=== PATIENT | female | born 1990 | race Caucasian/White ===

== ENCOUNTER 2019-03-16 10:26 | Inpatient (IN) | payer OTHER ==
[2019-03-16] VITALS (41 sets, daily range): BP systolic 106–138; BP diastolic 52–108
[~2019-03-16] VITALS: Ht 162.6 cm; Wt 72.1 kg
[~2019-03-16 10:26] MED LIST: AGM875T; ALBU0.83RX; BIRTH CONTROL; CLIN300C3 PO; METH4TAB PO; TRM50T; TRM50T PO; Z-PACK; [UNRECOGNIZED DRUG - OTHER]
--- NOTE | 2019-03-16 10:26 | NUR ---
AMELIA HART presented to unit via from home, accompanied by , for early labor.Pt was seen in office of Dr Vazquez this am. AMELIA HART weighed, gowned, voided, and to bed. EFHM and TOCO applied, VS taken. AMELIA HART oriented to bed controls, call light, TV, heat, and A/C controls.
[2019-03-16] MEDS ORDERED: MINERAL OIL CONCENTRATE 99.9% 15 ML UDC TOP PRN (11:15)
[2019-03-16 11:17] LABS: BILIRUBIN,URINE NEGATIVE (NEGATIVE); CLARITY,URINE CLEAR; COLOR,URINE YELLOW; GLUCOSE, URINE (UA) NEGATIVE (NEGATIVE); KETONES,URINE 2+ (NEGATIVE); LEUKOCYTE ESTERASE ,URINE 2+ (NEGATIVE); NITRITE,URINE NEGATIVE (NEGATIVE); PH,URINE 7 (5-9); PROTEIN,URINE NEGATIVE (NEGATIVE); UROBILINOGEN,URINE NORMAL (NORMAL)
[2019-03-16] MEDS: D5 LR IV SOLUTION 1,000 ML IV SCH ×2 (11:20→18:11)
[2019-03-16 11:29] LABS: BACTERIA,URINE MODERATE /HPF
[2019-03-16 11:44] LABS: BASOPHILS % (AUTO) 0 % (0-10); EOSINOPHILS # (AUTO) 0.2 10^3/uL (0.0-0.3); EOSINOPHILS % (AUTO) 2 % (0-10); HEMATOCRIT 38 % (35-52); LYMPHOCYTES # (AUTO) 1.3 X 10^3 (1.0-4.0); LYMPHOCYTES % (AUTO) 11 % (12-44); MEAN CORPUSCULAR HEMOGLOBIN 33 PG (25-34); MEAN CORPUSCULAR HGB CONC 34 G/DL (32-36); MEAN CORPUSCULAR VOLUME 97 FL (80-99); MEAN PLATELET VOLUME 11.7 FL (7.4-10.4); MONOCYTES # (AUTO) 0.9 X 10^3 (0.0-1.0); MONOCYTES % (AUTO) 8 % (0-12); NEUTROPHILS # (AUTO) 8.9 X 10^3 (1.8-7.8); NEUTROPHILS % (AUTO) 80 % (42-75); PLATELET COUNT 152 10^3/uL (130-400); RED CELL DISTRIBUTION WIDTH 13.8 % (10.0-14.5); WHITE BLOOD COUNT 11.2 10^3/uL (4.3-11.0)
--- NOTE | 2019-03-16 12:08 | NUR ---
Pt states she is not allergic to Guaifenesin. Allen, pharmacist with change in record.
[2019-03-16] MEDS ORDERED: PREN-142 PO (12:24)
[2019-03-16] MEDS ORDERED: LORA10CA PO (12:24)
[2019-03-16] MEDS ORDERED: CATHETER FLUSH 10 ML SYR IV SCH (14:00)
[2019-03-16] MEDS ORDERED: OXYTOCIN/NORMAL SALINE 500 ML IV ONE (14:16)
--- NOTE | 2019-03-16 14:24 | History & Physical ---
History and Physical Date Seen by Provider: Mar 16, 2019 Time Seen by Provider: 13:00 This is a late entry the patient was seen at approximately 1300 today This patient is a 28-year-old G1 white female with an EDC of [phone] putting her now at 38+ weeks gestation. She was seen in clinic on this date complaint of contractions and pressure. She was dilated to almost 3 cm and dillon every 3-4 minutes. She was sent to labor and delivery for evaluation management. She has continued to contract she denies rupture membranes or bleeding at the time of admission she has had no problems with this and a GBS culture was negative. Allergies are none Medications are vitamins Medical social and surgical histories are per the antepartum record HEENT exam is normal Neck is supple no lymphadenopathy no thyromegaly Abdomen is gravid soft nontender nondistended Extremities show no clubbing cyanosis. There is no Homans sign. Pelvic exam is as noted above. Laboratory Tests 03/16/19 11:20 monitor shows normal heart rate pattern with somewhat irregular contractions every 2-7 minutes. Assessment and plan term at 38+ weeks' gestation in latent labor. Patient has been admitted and amniotomy will be performed she was started on Pitocin if necessary to effect progress in labor. Anticipation is for vaginal delivery. Allergies and Home Medications Allergies Coded Allergies: Guaifenesin (Verified Allergy, Unknown, 04/04/08) Home Medications Vit No.124/Iron/FA Unknown Strength Tablet, Unknown Dose PO DAILY, (Reported) Patient Home Medication List Home Medication List Reviewed: Yes Clinical Quality Measures DVT/VTE Risk/Contraindication: Risk Factor Score Per Nursin RFS Level Per Nursing on Admit: 1=Low/No VTE PPX DEJUAN ASHRAF MD Mar 16, 2019 14:24
[2019-03-16] MEDS ORDERED: BUPIVACAINE 0.25% 30 ML (SENSORCAINE) VIAL ONE (16:53)
[2019-03-16] MEDS ORDERED: fentaNYL INJECTION 100 MCG/2 ML AMP ONE (16:53)
[2019-03-16] MEDS ORDERED: LIDOCAINE PF 2% 5 ML (XYLOCAINE) VIAL ONE (16:53)
[2019-03-16] MEDS ORDERED: SUFENTA 0.6MCG/ML BUPIVA 0.125 100 ML ONE (16:54)
--- NOTE | 2019-03-16 17:00 | NUR ---
JENNIE Valenzuela here for epidural placement. Procedure explained, consent reviewed and signed by anesthesia. Questions answered to patient's satisfaction. Time out taken to verify correct patient/procedure. 1708- Patient up to side of bed, assisted into sitting position. Betadine prep done x3 and sterile drape applied. 1716- Local done, see anesthesia record. 1720- Test dose given, see anesthesia record for drug and dosage. Epidural catheter secured in place. Epidural placement complete. 1724- Assisted back into bed, monitors adjusted. 1725- Epidural dosed, see anesthesia record. Epidural of Sufenta/Bupvicaine @12cc/hr stated per pump. Patient tolerated procedure well.
[2019-03-16] MEDS ORDERED: LACTATED RINGERS 1,000 ML IV SCH (17:28)
[2019-03-16] MEDS ORDERED: ONDANSETRON 4 MG/2 ML (SDV) Z0FRAN IV PRN (17:30)
[2019-03-16] MEDS ORDERED: EPIDURAL (SUFENTA 0.6MCG/ML BUPIVA 0.125%) 100 ML BAG EPI PRN (17:30)
[2019-03-16] MEDS ORDERED: NALOXONE 0.4 MG/ML 1 ML (NARCAN) VIAL IV PRN (17:30)
[2019-03-16] MEDS ORDERED: diphenhydrAMINE 50 MG/ML INJ (BENADRYL) IV PRN (17:30)
--- NOTE | 2019-03-16 17:52 | NUR ---
was called with update on pt's status, SVE and pitocin infusion rate. no new orders received.
[2019-03-16] MEDS ORDERED: OXYTOCIN/NORMAL SALINE 500 ML IV SCH (19:57)
[2019-03-16] MEDS ORDERED: LIDOCAINE/EPI 2% 1:200,00 (XYLOCAINE) 10 ML VIAL ONE (21:04)
[2019-03-17] VITALS (17 sets, daily range): BP systolic 90–145; BP diastolic 54–80
[2019-03-17] MEDS ORDERED: OXYTOCIN/NORMAL SALINE 500 ML IV SCH ×2 (01:55→03:38)
[2019-03-17] MEDS ORDERED: KETOROLAC 30 MG/ML VIAL ONE (02:00)
[2019-03-17] MEDS ORDERED: BENZOCAINE/MENTHOL (DERMOPLAST) 56 ML CAN TP ONE (02:45)
[2019-03-17] MEDS ORDERED: WITCH HAZEL(TUCKS) 40 EA JAR ONE (02:45)
--- NOTE | 2019-03-17 03:00 | NUR ---
Pt up to side of bed. Epidural cath removed, tip intact. Pt feeling dizzy and needing to lay down before attempting to get up to void. emesis bag given if needed, cool cloth offered. Pericare done in bed with pt laying on side. Ice pack given.
[2019-03-17] MEDS ORDERED: MEASLES,MUMPS,RUBELLA 1 EA INJ SC ONE (03:45)
[2019-03-17] MEDS ORDERED: oxyCODONE/APAP 5/325MG (PERCOCET 5) TABLET PO PRN (03:45)
[2019-03-17] MEDS ORDERED: TETANUS,DIPTH,PERTUSS P/F (BOOSTRIX) 0.5 ML VIAL IM ONE (03:45)
[2019-03-17] MEDS ORDERED: KETOROLAC 30 MG/ML VIAL IVP PRN (03:45)
[2019-03-17] MEDS ORDERED: BENZOCAINE/MENTHOL (DERMOPLAST) 56 ML CAN TP PRN (03:45)
[2019-03-17] MEDS ORDERED: ONDANSETRON 4 MG/2 ML (SDV) Z0FRAN IVP PRN (03:45)
--- NOTE | 2019-03-17 04:00 | NUR ---
pt up to void in labor room, no void at this time, pericare demonstrated and discussed. Clean gown, vpad and mesh panties in place. pt up to wheelchair. pt feeling dizzy at this time, cool cloth given, ice chips per request, pt feeling nauseated as well. Pt denies the need to lay down. Pt remains in wheelchair and taken into the nsy per request with s.o.
--- NOTE | 2019-03-17 05:00 | NUR ---
Pt remains in nsy at this time bonding with infant.
--- NOTE | 2019-03-17 05:45 | NUR ---
Pt back to room after in nsy, pt up to void, void noted. Assisted with pericare and clean vpad in place, pt ambulated to PP bed, oriented to room, call light, and info papers explained. pt tolerated ambulating well, but did feel dizzy prior to laying down. Enc pt to call before getting out of bed. fresh ice water given, denies the need for pain medication.
--- NOTE | 2019-03-17 07:54 | Progress Note ---
Standard Progress Note Progress Notes/Assess & Plan Date Seen by a Provider: Mar 17, 2019 Time Seen by a Provider: 07:53 Progress/Assessment & Plan This patient is without complaint. She is ambulating, voiding, tolerating oral intake. She has adequate pain control from her delivery approximately 45 hours ago. Vital Signs 03/17/19 03/17/19 03/17/19 00:30 01:45 03:45 Temp 37.6 Pulse 107 Resp 16 B/P (MAP) 116/73 (87) Pulse Ox 99 O2 Delivery Room Air Vital signs are stable. Patient afebrile. The abdomen is benign. The fundus is firm below the umbilicus nontender. Extremities show no clubbing or cyanosis. There is no Homans sign. Assessment and plan status post term operative vaginal delivery a few hours ago doing well. Plan is for routine convalescence. DEJUAN ASHRAF MD Mar 17, 2019 07:54
[2019-03-17] MEDS ORDERED: OXYC1TAB87 PO (07:57)
[2019-03-17] MEDS ORDERED: DOCU100C37 PO (07:57)
[2019-03-17] MEDS ORDERED: IBUP-1780 PO (07:57)
--- NOTE | 2019-03-17 07:57 | Discharge Instructions ---
Discharge Instructions Discharge Medications New, Converted or Re-Newed RX: RX on Chart Patient Instructions Return to The Hospital For: As directed Activity & Diet Discharge Diet: No Restrictions Activity as Tolerated: No Orders-Post D/C & Referrals Follow Up Appt: Call to make follow up appt. for patient in 4 weeks. Activity Per routine post vaginal delivery instructions. Please call in RX to patient pharmacy. Diet as tolerated Patient may shower or tub bathe as desired. DEJUAN ASHRAF MD Mar 17, 2019 07:57
[2019-03-17] MEDS: DOCUSATE SODIUM 100 MG (COLACE) CAP PO SCH ×2 (08:09→20:10)
[2019-03-17] MEDS: IBUPROFEN 800 MG (MOTRIN) TAB PO SCH ×3 (08:10→20:10)
--- NOTE | 2019-03-17 08:40 | OPERATIVE REPORT ---
DATE OF SERVICE: 03/17/2019 DELIVERY NOTE The patient delivered a viable female infant with Apgars of 8 and 8 at 1 and 5 minutes respectively, weight of 7 pounds 13 ounces, time of 0144 over a midline episiotomy under epidural and local analgesia with the use of Ovalles forceps for an outlet delivery. Cord ABG had a pH of 7.20. The patient had pushed the baby down to the perineum +4 station, but could not push the baby any further. The FHR pattern demonstrated persistent decels to the 70 - 90 range with and after contractions. The patient had pushed for almost 3 hours and indicated that she could no longer push effectively and requested assistance in the form of the forceps. Ovalles forceps were applied without difficulty. The correct placement was confirmed and then with traction along the pelvic axis over the next 2 pushes, the infant's head was delivered over the perineum. The posterior vaginal wall was beginning to show evidence of some laceration (bright red blood) as the head descended in a slighly posterior asynclitic position . A midline episiotomy was performed to shorten the second stage and that incision was made in conjunction with the posterior vaginal wall laceration basically making one defect that was repaired with sutures of 3-0 Vicryl Rapide. The was bulb suctioned on delivery of the head and again on completion of delivery. The umbilical cord when pulseless was doubly cut, clamped and the father cut the cord, the baby was passed to mom's abdomen and then shortly taken to the warmer for evaluation and resuscitation. The pediatric nurse summoned RT. The baby was taken to the nursery and the illuminator was apprised of the delivery, as the baby was requiring some oxygen support. The vagina, perineum, cervix and rectum were examined and were intact except for the midline episiotomy and the posterior vaginal wall laceration (extension) of the episiotomy. That was repaired with two sutures of 3-0 Vicryl Rapide in the usual manner without difficulty to good reapproximation and good hemostasis. The sphincter muscles were intact. he repair was performed under the epidural augmented with local analgesia as well. Sponge and needle counts were correct. Estimated blood loss was around 300 mL. The patient tolerated the delivery and the repair well and remained in the LDR. The baby had been taken to the full term nursery. Job ID: [id number] DocumentID: [id number] Dictated Date: 03/17/2019 02:24:16 Candy Depositing Machine Operator Date: 03/17/2019 08:39:51 Dictated By: DEJUAN ASHRAF MD MTDD
--- NOTE | 2019-03-17 15:05 | Anesthesia-Regional Post-Op ---
Regional Patient Condition Mental Status: Alert, Oriented x3 Circulation: Same as Pre-Op Headache: Absent Sensation: Full Recovery Motor Block: Absent Post Op Complications Complications None Follow Up Care/Instructions Patient Instructions None needed. Anesthesia/Patient Condition Patient is doing well, no complaints, stable vital signs, no apparent adverse anesthesia problems. ROGER NICHOLE DO Mar 17, 2019 15:05
--- NOTE | 2019-03-17 17:09 | NUR ---
Up and about in room without dizziness. Ice to edematous labia prn. Tender episiotomy - using Tucks, and Dermoplast. and infant in room. Pt fatigued.
--- NOTE | 2019-03-17 19:26 | NUR ---
report given to MONA Calvert.
--- NOTE | 2019-03-17 20:00 | NUR ---
Rn to room, pt holding infant on chest at this time. Denies needs. fresh ice water given. pt would like to rest to only come in for routine vs and meds.
[2019-03-17] MEDS ORDERED: DIBUCAINE (NUPERCAINAL) 1% OINT 30 GM ONE (20:08)
--- NOTE | 2019-03-17 23:50 | NUR ---
RN to room, pt requesting to nsy while pt sleeps. fresh ice water given. plan of care reviewed. pt denies needs.
[2019-03-18] VITALS: BP 114/71
[2019-03-18] MEDS: IBUPROFEN 800 MG (MOTRIN) TAB PO SCH ×4 (00:15→17:10)
--- NOTE | 2019-03-18 02:50 | NUR ---
Rn to room, aroused pt, fresh ice water given. Denies needs. given to mother to breastfeed.
[2019-03-18 05:30] VITALS: BP 122/75
--- NOTE | 2019-03-18 07:50 | NUR ---
here to see pt.
--- NOTE | 2019-03-18 07:53 | Progress Note ---
Standard Progress Note Progress Notes/Assess & Plan Date Seen by a Provider: Mar 18, 2019 Time Seen by a Provider: 07:52 Progress/Assessment & Plan This patient is without complaint. She is ambulating, voiding, tolerating oral intake. She has adequate pain control from her delivery approximately 45 hours ago. Vital Signs 03/17/19 03/17/19 03/17/19 00:30 01:45 03:45 Temp 37.6 Pulse 107 Resp 16 B/P (MAP) 116/73 (87) Pulse Ox 99 O2 Delivery Room Air Vital signs are stable. Patient afebrile. The abdomen is benign. The fundus is firm below the umbilicus nontender. Extremities show no clubbing or cyanosis. There is no Homans sign. Assessment and plan status post term operative vaginal delivery a few hours ago doing well. Plan is for routine convalescence. March 18, 2019 Patient is without complaint. She is ablating, voiding, tolerating oral intake well has good pain control. Patient is requesting discharge home. Vital Signs 03/18/19 05:30 Temp 37.0 Pulse 90 Resp 18 B/P (MAP) 122/75 (91) Pulse Ox 96 O2 Delivery Room Air Vital signs are stable. Patient afebrile. Fundus is firm below the umbilicus and nontender. Extremities show no clubbing or cyanosis. There is no Homans sign. Assessment and plan day number 2 status post term operative vaginal delivery doing well. Plan is for discharge home. If baby is not discharged patient will room in Final Diagnosis 38 week operative vaginal delivery DEJUAN ASHRAF MD Mar 18, 2019 07:53
[2019-03-18] MEDS: DOCUSATE SODIUM 100 MG (COLACE) CAP PO SCH ×2 (09:45→20:40)
--- NOTE | 2019-03-18 09:45 | NUR ---
initial shift assessment completed, see interventions for further.
[2019-03-18 12:49] VITALS: BP 123/73
[2019-03-18 17:16] VITALS: BP 111/75
--- NOTE | 2019-03-18 18:55 | NUR ---
stork meal served.
--- NOTE | 2019-03-18 19:15 | NUR ---
REPORT RECEIVED AND CARES RESUMED BY THIS NURSE.
--- NOTE | 2019-03-18 19:15 | NUR ---
report given to MONA Ayala.
[2019-03-18 20:40] VITALS: BP 105/66
--- NOTE | 2019-03-18 20:40 | NUR ---
INITIAL SHIFT ASSESSMENT DONE. VSS. PT DENIES ANY PAIN OR C/O'S.
--- NOTE | 2019-03-18 22:50 | NUR ---
PT RESTING OFF ET ON. NO S/S OF DISTRESS OR DISCOMFORT NOTED.
[2019-03-19] MEDS: IBUPROFEN 800 MG (MOTRIN) TAB PO SCH ×2 (00:15→06:56)
--- NOTE | 2019-03-19 00:20 | NUR ---
SCHEDULED MOTRIN ADMINISTERED. PT DENIES ANY NEEDS OR C/O'S.
[2019-03-19 00:30] VITALS: BP 109/67
--- NOTE | 2019-03-19 04:00 | NUR ---
PT RESTING WELL. RESTING AT SIDE.
--- NOTE | 2019-03-19 06:50 | NUR ---
MOTRIN ADMINISTERED. PT GETTING UP TO SHOWER.
[2019-03-19 08:30] VITALS: BP 121/74
--- NOTE | 2019-03-19 09:47 | Progress Note ---
Standard Progress Note Progress Notes/Assess & Plan Date Seen by a Provider: Mar 19, 2019 Time Seen by a Provider: 09:46 Progress/Assessment & Plan This patient is without complaint. She is ambulating, voiding, tolerating oral intake. She has adequate pain control from her delivery approximately 45 hours ago. Vital Signs 03/17/19 03/17/19 03/17/19 00:30 01:45 03:45 Temp 37.6 Pulse 107 Resp 16 B/P (MAP) 116/73 (87) Pulse Ox 99 O2 Delivery Room Air Vital signs are stable. Patient afebrile. The abdomen is benign. The fundus is firm below the umbilicus nontender. Extremities show no clubbing or cyanosis. There is no Homans sign. Assessment and plan status post term operative vaginal delivery a few hours ago doing well. Plan is for routine convalescence. March 18, 2019 Patient is without complaint. She is ablating, voiding, tolerating oral intake well has good pain control. Patient is requesting discharge home. Vital Signs 03/18/19 05:30 Temp 37.0 Pulse 90 Resp 18 B/P (MAP) 122/75 (91) Pulse Ox 96 O2 Delivery Room Air Vital signs are stable. Patient afebrile. Fundus is firm below the umbilicus and nontender. Extremities show no clubbing or cyanosis. There is no Homans sign. Assessment and plan day number 1 status post term operative vaginal delivery doing well. Plan is for discharge home. If baby is not discharged patient will room in March 19, 2019 Patient is without complaint. She is ablating, voiding, tolerating oral intake well has good pain control and is requesting discharge home. Vital Signs 03/19/19 08:30 Temp 36.7 Pulse 97 Resp 18 B/P (MAP) 121/74 (90) Pulse Ox 99 O2 Delivery Room Air Vital signs are stable. Patient afebrile. Fundus firm below the umbilicus nontender. Extremities show clubbing cyanosis. There is no Homans sign. Assessment and plan day number 2 status post term operative vaginal delivery doing well. Plan is for discharge home with follow-up in clinic Final Diagnosis 38 week operative vaginal delivery DEJUAN ASHRAF MD Mar 19, 2019 09:47
--- NOTE | 2019-03-19 12:55 | NUR ---
AMELIA HART demonstrates understanding of discharge instructions and accurately returns instructions upon questioning. Copy of Post-Discharge Instructions and Medication Discharge Instructions given to patient. AMELIA HART is able to manage continuing needs after discharge. Patients belongings returned to patient. Skin dry and intact; no breakdown noted. Patient discharged from [facility] on 03-19-19 at 1255. AMELIA HART left floor via ambulation, accompanied by staff and s/o.
--- NOTE | 2019-03-23 11:50 | Discharge Summary ---
Discharge Summary This patient is a 28-year-old white female admitted from my clinic on March 16 in early labor. Her labor was augmented with Pitocin through the evening and shortly after midnight she delivered by term operative vaginal delivery. The delivery was uncomplicated and the patient and the baby recovered uneventfully. On March 17 which was the day of delivery patient was stable through the day. March 18 which was day number 1 patient was without complaints she is ablating, voiding, tolerating oral intake and had good pain control. She was stable through the day. February which was now day number 2 patient was again stable ambulating, voiding, tolerating oral intake and having good pain control. She was requesting discharge home and she was discharged home Principal Diagnoses this hospitalization is term operative vaginal delivery Secondary diagnoses are spontaneous labor Operation procedures include monitoring, Pitocin augmentation of labor, epidural analgesia, low to outlet Ovalles forceps vaginal delivery with midline episiotomy and repair Patient was given appropriate discharge instructions verbally and in writing and a copy those are included in the chart. Discharge medications are Percocet and Motrin and Colace patient was to continue her own home medications Clinical Quality Measures DVT/VTE Risk/Contraindication: Risk Factor Score Per Nursin RFS Level Per Nursing on Admit: 1=Low/No VTE PPX DEJUAN ASHRAF MD Mar 23, 2019 11:50
== END 2019-03-19 12:55 | disposition home or self-care (01) | DRG 807 ==
LOC: LDRP 10:26
PROVIDERS: ADMIT Obstetrics & Gynecology; ATTEND Obstetrics & Gynecology
PROC: 10D07Z3 Extraction of Products of Conception, Low Forceps, Via Natural or Artificial Opening (ICD-10-PCS; principal; 2019-03-17)
PROC: 0W8NXZZ Division of Female Perineum, External Approach (ICD-10-PCS; 2019-03-17)
PROC: 0UQGXZZ Repair Vagina, External Approach (ICD-10-PCS; 2019-03-17)
DX: O75.81 Maternal exhaustion complicating labor and delivery (principal); O71.4 Obstetric high vaginal laceration alone; Z3A.38 38 weeks gestation of pregnancy; Z37.0 Single live birth
CPT/HCPCS: 36415; 81000; 85025; 86850; 86900; 86901; 88307

== ENCOUNTER 2021-08-14 06:02 | Inpatient (IN) | payer OTHER ==
[2021-08-14] VITALS (53 sets, daily range): BP systolic 80–120; BP diastolic 43–76
[~2021-08-14] VITALS: Ht 162.6 cm; Wt 72.1 kg
[~2021-08-14 06:02] MED LIST changes: +DOCU100C37 PO; +IBUP-1780 PO; +LORA10CA PO; +OXYC1TAB87 PO; +PREN-142 PO
[2021-08-14] MEDS ORDERED: OXYTOCIN PRE-MIX DRIP 500 ML IV SCH ×2 (06:45→15:30)
[2021-08-14] MEDS ORDERED: D5 LR IV SOLUTION 1,000 ML IV SCH (06:45)
[2021-08-14] MEDS ORDERED: MINERAL OIL 30 ML OIL TOP PRN (06:45)
[2021-08-14] MEDS ORDERED: ONDANSETRON 4 MG/2 ML (SDV) Z0FRAN ONE (07:08)
[2021-08-14 07:16] LABS: BASOPHILS # (AUTO) 0.1 10^3/uL (0.0-0.1); BASOPHILS % (AUTO) 0 % (0-10); EOSINOPHILS # (AUTO) 0.4 10^3/uL (0.0-0.3); EOSINOPHILS % (AUTO) 3 % (0-10); HEMATOCRIT 33 % (35-52); HEMOGLOBIN 10.5 g/dL (11.5-16.0); LYMPHOCYTES # (AUTO) 1.9 10^3/uL (1.0-4.0); LYMPHOCYTES % (AUTO) 17 % (12-44); MEAN CORPUSCULAR HEMOGLOBIN 29 pg (25-34); MEAN CORPUSCULAR HGB CONC 32 g/dL (32-36); MEAN CORPUSCULAR VOLUME 91 fL (80-99); MEAN PLATELET VOLUME 11.6 fL (9.0-12.2); MONOCYTES # (AUTO) 0.9 10^3/uL (0.0-1.0); MONOCYTES % (AUTO) 8 % (0-12); NEUTROPHILS % (AUTO) 70 % (42-75); PLATELET COUNT 218 10^3/uL (130-400); WHITE BLOOD COUNT 11.4 10^3/uL (4.3-11.0)
--- NOTE | 2021-08-14 08:37 | History & Physical-OB ---
OB - Chief Complaint & HPI Date/Time Date of Admission: Date of Admission: Aug 14, 2021 at 06:27 Date seen by a Provider: Aug 14, 2021 Time Seen by a Provider: 08:32 Chief Complaint/History OB-Reason for Admission/Chief: Rupture of Membranes Hx : 2 Hx Para: 1 Expected Date of Delivery: Aug 13, 2021 Gestational Age in Weeks: 40 Gestational Age in Days: 1 Other reason for admission: Patient had clear SROM at home at 4 AM. Occassional contractions. + FM History of Labs A+, Ab neg Rub Imm HIV/RPR/HepB/C NR Abnormal 1hr GTT, Normal 3hr GTT GBS neg Allergies and Home Medications Allergies Coded Allergies: Guaifenesin (Verified Allergy, Unknown, 04/04/08) Patient Home Medication List Home Medication List Reviewed: Yes Docusate Sodium (Docusate Sodium) 100 Mg Capsule, 100 MG PO BID Prescribed by: DEJUAN ROY on 03/17/19 075 Ibuprofen (Ibuprofen) 800 Mg Tablet, 800 MG PO Q6HR Prescribed by: DEJUAN ROY on 03/17/19 075 Loratadine (Claritin) Unknown Strength Capsule, Unknown Dose PO, (Reported) Entered as Reported by: BRANDON SUN on 03/16/19 1224 Oxycodone HCl/Acetaminophen (Percocet 5-325 mg Tablet) 1 Each Tablet, 1 TAB PO Q4H PRN for PAIN-MODERATE Prescribed by: DEJUAN ROY on 03/17/19 075 Vit No.124/Iron/FA ( Vitamin Tablet) Unknown Strength Tablet, Unknown Dose PO DAILY, (Reported) Entered as Reported by: BRANDON SUN on 03/16/19 1224 OB - History Hx of Present Care: Yes Ultrasounds: Normal mid trimester US Obstetrical Complications: None Medical Complications: None Obstetrical History Hx : 2 Hx Para: 1 Number of Living Children: 1 Delivery History Hx Blood Disorders: No Patient Past Medical History None Social History/Family History Alcohol Use: Denies Use Recreational Drug Use: No Smoking Cessation: Never smoker Immunizations Hepatitis B: Yes Tetanus Booster (TDap): Less than 5yrs Rubella: immune RPR/VDRL: Negative GBS Status: Negative HBsAG: Negative OB - Admission Exam Physical Exam Vitals: Vital Signs 08/14/21 06:13 Temp 36.6 Pulse 109 Resp 18 Pulse Ox 99 O2 Delivery Room Air HEENT: NCAT Heart: Rhythm Normal Lungs: Clear Abdomen: Gravid Cervical Dilatation: 6cm Effacement: 75% Station: -1 Membranes: Ruptured Amniotic Fluid: Clear Heart Rate: 140's Accelerations: Accelerations Present Decelerations: No Decelerations Short Term Variability: Present Elocution Teacher Variability: Average (6-25) Contractions on Admission: 6-10 Minutes Apart Intensity: Moderate Labs Laboratory Tests Test 08/14/21 06:23 08/14/21 06:50 Range/Units Membranes Rupture POSITIVE White Blood Count 11.4 H 4.3-11.0 10^3/uL Red Blood Count 3.66 L 3.80-5.11 10^6/uL Hemoglobin 10.5 L 11.5-16.0 g/dL Hematocrit 33 L 35-52 % Mean Corpuscular Volume 91 80-99 fL Mean Corpuscular Hemoglobin 29 25-34 pg Mean Corpuscular Hemoglobin Concent 32 32-36 g/dL Red Cell Distribution Width 14.4 10.0-14.5 % Platelet Count 218 130-400 10^3/uL Mean Platelet Volume 11.6 9.0-12.2 fL Immature Granulocyte % (Auto) 1 % Neutrophils (%) (Auto) 70 42-75 % Lymphocytes (%) (Auto) 17 12-44 % Monocytes (%) (Auto) 8 0-12 % Eosinophils (%) (Auto) 3 0-10 % Basophils (%) (Auto) 0 0-10 % Neutrophils # (Auto) 8.0 H 1.8-7.8 10^3/uL Lymphocytes # (Auto) 1.9 1.0-4.0 10^3/uL Monocytes # (Auto) 0.9 0.0-1.0 10^3/uL Eosinophils # (Auto) 0.4 H 0.0-0.3 10^3/uL Basophils # (Auto) 0.1 0.0-0.1 10^3/uL Immature Granulocyte # (Auto) 0.2 H 0.0-0.1 10^3/uL OB - Assessment/Plan/Diagnosis Assessment Assessment: active labor, rupture of membranes Admission Dx third trimester 40 week gestation SROM Admission Status: Inpatient Order (span 2 midnights) Reason for Inpatient Admission: SROM Plan Other Plan 31 yo @ 40.1 wga here after SROM clear at home Plan - Expectant management with pitocin augmentation - GBS neg CLAUDINE CORTEZ MD Aug 14, 2021 08:37
[2021-08-14] MEDS ORDERED: fentaNYL 2 mcg/ml BUPIVA 0.125 100 ML ONE (10:12)
[2021-08-14] MEDS ORDERED: fentaNYL INJ 100 MCG/2 ML AMP ONE (10:15)
[2021-08-14] MEDS ORDERED: BUPIVACAINE 0.25% 30 ML (SENSORCAINE) VIAL ONE (10:15)
--- NOTE | 2021-08-14 11:12 | Labor Progress Note ---
Labor Progress Note Labor Progress Note Date Seen by Provider: Aug 14, 2021 Time Seen by Provider: 11:10 Subjective: Pt denies complaints. Epidural placed. Patient feeling well. Feeling pressure but no sharp pain Objective: SVE Assessment/Plan: Jacquelyn Kaur is a (31 /Para 2 / 1,Gestational Age (wks)40.1 here after SROM at home clear CEFM/TOCO Continue pitocin augmentation Anesthesia: epidural in place GBS neg Anticipate vaginal delivery. Vitals - Labs Vital Signs - I&O Vital Signs Date Time Temp Pulse Resp B/P (MAP) Pulse Ox O2 Delivery O2 Flow Rate FiO2 08/14/21 06:13 36.6 109 18 99 Room Air Labs Laboratory Tests 08/14/21 06:23: Membranes Rupture POSITIVE 08/14/21 06:50: White Blood Count 11.4H, Red Blood Count 3.66L, Hemoglobin 10.5L, Hematocrit 33L , Mean Corpuscular Volume 91, Mean Corpuscular Hemoglobin 29, Mean Corpuscular Hemoglobin Concent 32, Red Cell Distribution Width 14.4, Platelet Count 218, Mean Platelet Volume 11.6, Immature Granulocyte % (Auto) 1, Neutrophils (%) (Auto) 70, Lymphocytes (%) (Auto) 17, Monocytes (%) (Auto) 8, Eosinophils (%) (Auto) 3, Basophils (%) (Auto) 0, Neutrophils # (Auto) 8.0H, Lymphocytes # (Auto) 1.9, Monocytes # (Auto) 0.9, Eosinophils # (Auto) 0.4H, Basophils # (A uto) 0.1, Immature Granulocyte # (Auto) 0.2H CLAUDINE CORTEZ MD Aug 14, 2021 11:12
[2021-08-14] MEDS ORDERED: NALOXONE 0.4 MG/ML 1 ML (NARCAN) VIAL IV PRN (11:15)
[2021-08-14] MEDS ORDERED: CATHETER FLUSH 10 ML SYR IV PRN (11:15)
[2021-08-14] MEDS ORDERED: diphenhydrAMINE 50 MG/ML INJ (BENADRYL) IV PRN (11:15)
[2021-08-14] MEDS ORDERED: fentaNYL 2 mcg/ml BUPIVA 0.125 100 ML IV SCH (11:15)
[2021-08-14] MEDS ORDERED: LACTATED RINGERS 1,000 ML IV ONE (11:15)
[2021-08-14] MEDS ORDERED: ONDANSETRON 4 MG/2 ML (SDV) Z0FRAN IV PRN (11:15)
[2021-08-14] MEDS ORDERED: MINERAL OIL CONCENTRATE 99.9% 15 ML UDC TOP PRN (13:45)
[2021-08-14] MEDS ORDERED: CATHETER FLUSH 10 ML SYR IV SCH ×2 (14:00→22:00)
[2021-08-14] MEDS ORDERED: BENZOCAINE/MENTHOL (DERMOPLAST) 56 ML CAN TP PRN (15:30)
[2021-08-14] MEDS ORDERED: WITCH HAZEL(TUCKS) 40 EA JAR TOP PRN (15:30)
--- NOTE | 2021-08-14 15:38 | OB Labor & Delivery Record ---
Vag Delivery Note Vag Delivery Note Date of Delivery: 08/14/21 Preoperative Diagnosis: Jacquelyn Kaur is a (31 /Para 2 / 1, Gestational Age (wks)40with [] Postoperative Diagnosis: Same Surgeon: CLAUDINE CORTEZ MD Mechanical Shop Laborer: KAUSHIK OSBORN MS4 Anesthesia: [Epidural] Delivery Type: [Vacuum assist @ 1449] Findings: Viable [female] , apgars [8/8, 8/8], weight [7lb 15oz, 3610g] Lacerations: 2nd degree Intact placenta with 3 vessel cord. Nuchal chord x1 Estimated Blood Loss: 150 ml Complications: None Condition: Stable Description of Procedure: The patient is a 31 year old female who presented with spontaneous vaginal delivery. She was admitted and informed consent was obtained. She progressed to complete dilatation and began to push. She was then set up for delivery. The infant's head was delivered atraumatically in the left occiput anterior position. A vaccum was applied to assist in delivering the head. The shoulders and remainder of the infant's body were then delivered without difficulty. Upon delivery, the head was held below the level of the perineum and the mouth and nares were bulb suctioned. The cord was doubly clamped and cut and the was handed off to the pediatric staff. An intact placenta with 3-vessel cord delivered via Raven and there was found to be minimal bleeding.~ Vigorous fundal massage was performed and the fundus was found to be firm. IV oxytocin was given. Examination of the vagina and perineum revealed a 2nd degree laceration repaired in the usual fashion with 3-0 vicryl suture. Following the repair, sponge, instrument and needle counts were correct. Mom and baby were both in stable condition in the labor suite. Vitals - Labs Vital Signs - I&O Vital Signs Date Time Temp Pulse Resp B/P (MAP) Pulse Ox O2 Delivery O2 Flow Rate FiO2 08/14/21 06:13 36.6 109 18 99 Room Air Labs Laboratory Tests 08/14/21 06:23: Membranes Rupture POSITIVE 08/14/21 06:50: White Blood Count 11.4H, Red Blood Count 3.66L, Hemoglobin 10.5L, Hematocrit 33L , Mean Corpuscular Volume 91, Mean Corpuscular Hemoglobin 29, Mean Corpuscular Hemoglobin Concent 32, Red Cell Distribution Width 14.4, Platelet Count 218, Mean Platelet Volume 11.6, Immature Granulocyte % (Auto) 1, Neutrophils (%) (Auto) 70, Lymphocytes (%) (Auto) 17, Monocytes (%) (Auto) 8, Eosinophils (%) (Auto) 3, Basophils (%) (Auto) 0, Neutrophils # (Auto) 8.0H, Lymphocytes # (Auto) 1.9, Monocytes # (Auto) 0.9, Eosinophils # (Auto) 0.4H, Basophils # (Auto) 0.1, Immature Granulocyte # (Auto) 0.2H RONY OSBORN Aug 14, 2021 15:38
[2021-08-14] MEDS: IBUPROFEN 800 MG (MOTRIN) TAB PO SCH ×2 (17:34→23:50)
[2021-08-14] MEDS: DOCUSATE SODIUM 100 MG (COLACE) CAP PO SCH (22:11)
[2021-08-15] VITALS: BP 113/69
[2021-08-15] MEDS: ACETAMINOPHEN 500 MG TAB (TYLENOL) PO SCH ×3 (00:56→10:02)
[2021-08-15 04:00] VITALS: BP 99/54
[2021-08-15 06:03] LABS: BASOPHILS % (AUTO) 0 % (0-10); EOSINOPHILS # (AUTO) 0.4 10^3/uL (0.0-0.3); EOSINOPHILS % (AUTO) 3 % (0-10); HEMATOCRIT 30 % (35-52); HEMOGLOBIN 9.3 g/dL (11.5-16.0); LYMPHOCYTES # (AUTO) 2.2 10^3/uL (1.0-4.0); LYMPHOCYTES % (AUTO) 15 % (12-44); MEAN CORPUSCULAR HEMOGLOBIN 29 pg (25-34); MEAN CORPUSCULAR HGB CONC 31 g/dL (32-36); MEAN CORPUSCULAR VOLUME 92 fL (80-99); MEAN PLATELET VOLUME 11.4 fL (9.0-12.2); MONOCYTES # (AUTO) 1.1 10^3/uL (0.0-1.0); MONOCYTES % (AUTO) 8 % (0-12); NEUTROPHILS # (AUTO) 10.3 10^3/uL (1.8-7.8); NEUTROPHILS % (AUTO) 73 % (42-75); PLATELET COUNT 187 10^3/uL (130-400); WHITE BLOOD COUNT 14.2 10^3/uL (4.3-11.0)
[2021-08-15] MEDS ORDERED: PRENATAL VITAMIN 1 EA TAB PO SCH (07:00)
--- NOTE | 2021-08-15 08:50 | Anesthesia-Regional Post-Op ---
Regional Patient Condition Mental Status: Alert, Oriented x3 Circulation: Same as Pre-Op Headache: Absent Sensation: Full Recovery Motor Block: Absent Post Op Complications Complications None Follow Up Care/Instructions Patient Instructions None needed. Anesthesia/Patient Condition Patient is doing well, no complaints, stable vital signs, no apparent adverse anesthesia problems. No complications reported per nursing. JAME RODRIGUEZ CRNA Aug 15, 2021 08:50
--- NOTE | 2021-08-15 09:34 | Short Stay Summary ---
Discharge Summary Hospital Course Final Diagnosis: s/p VAVD Hospital Course Date of Admission: Aug 14, 2021 at 06:27 Admission Diagnosis : 1. @ 40w1d MO Family Physician/Provider: Etelvina Date of Discharge: 08/15/21 Discharge Diagnosis: 1. s/p VAVD on08/14/21 2. Second degree laceration Hospital Course: Routine course. Labs and Pending Lab Test: Laboratory Tests 08/15/21 05:50: White Blood Count 14.2H, Red Blood Count 3.23L, Hemoglobin 9.3L, Hematocrit 30L, Mean Corpuscular Volume 92, Mean Corpuscular Hemoglobin 29, Mean Corpuscular Hemoglobin Concent 31L, Red Cell Distribution Width 14.5, Platelet Count 187, Mean Platelet Volume 11.4, Immature Granulocyte % (Auto) 1, Neutrophils (%) (Auto) 73, Lymphocytes (%) (Auto) 15, Monocytes (%) (Auto) 8, Eosinophils (%) (Auto) 3, Basophils (%) (Auto) 0, Neutrophils # (Auto) 10.3H, Lymphocytes # (Auto) 2.2, Monocytes # (Auto) 1.1H, Eosinophils # (Auto) 0.4H, Basophils # (Auto) 0.0, Immature Granulocyte # (Auto) 0.2H Home Meds Active Docusate Sodium 100 Mg Capsule 100 Mg PO BID Percocet 5-325 mg Tablet (Oxycodone HCl/Acetaminophen) 1 Each Tablet 1 Tab PO Q4H PRN Ibuprofen 800 Mg Tablet 800 Mg PO Q6HR Reported Claritin (Loratadine) Unknown Strength Capsule Unknown Dose PO Vitamin Tablet ( Vit No.124/Iron/FA) Unknown Strength Tablet Unknown Dose PO DAILY Assessment/Pt Instructions Follow-up with Dr. Main in 6 weeks Discharge Instructions Discharge Diet: No Restrictions Discharge Physical Examination General Appearance: Alert, Oriented X3, Cooperative Psych/Mental Status: Mood NL Allergies: Coded Allergies: Guaifenesin (Verified Allergy, Unknown, 04/04/08) Discharge Summary Date of Admission Aug 14, 2021 at 06:27 Date of Discharge CARROLL ADAMS DO Aug 15, 2021 09:34
[2021-08-15] MEDS: DOCUSATE SODIUM 100 MG (COLACE) CAP PO SCH (10:02)
[2021-08-15] MEDS: IBUPROFEN 800 MG (MOTRIN) TAB PO SCH (10:02)
[2021-08-15 10:04] VITALS: BP 119/65
== END 2021-08-15 18:20 | disposition home or self-care (01) | DRG 807 ==
LOC: WSo 06:02 → LDRP 06:13 → WSo 06:31 → LDRP 17:30
PROVIDERS: ADMIT Family Medicine; ATTEND Family Medicine
PROC: 10D07Z6 Extraction of Products of Conception, Vacuum, Via Natural or Artificial Opening (ICD-10-PCS; principal; 2021-08-14)
PROC: 0KQM0ZZ Repair Perineum Muscle, Open Approach (ICD-10-PCS; 2021-08-14)
DX: O48.0 Post-term pregnancy (principal); Z37.0 Single live birth; O70.1 Second degree perineal laceration during delivery; Z3A.40 40 weeks gestation of pregnancy; O69.81X0 Labor and delivery complicated by cord around neck, without compression, not applicable or unspecified
CPT/HCPCS: 36415; 84112; 85025; 86850; 86900; 86901; 99212